=== PATIENT | male | born 1945 | race Hispanic/Latino ===

== ENCOUNTER 2022-09-08 10:12 | Observation (INO) | payer MEDICAID, SELFPAY ==
[2022-09-08 10:51] LABS: #Lymphocytes 0.7 thou/uL (1.20-3.40); #Monocytes 1.1 thou/uL (0.11-0.59); #Neutrophils 9.4 thou/uL (1.40-6.50); %Basophils 0.2 % (0.0-1.0); %Eosinophils 0.1 % (0.0-10.0); %Lymphocytes 6.1 % (21.0-51.0); %Monocytes 9.6 % (0.0-10.0); %Neutrophils 83.9 % (42.0-75.0); Hemoglobin 12.9 g/dL (14.0-18.0); Mean Corpuscular HGB CONC 34.2 g/dL (32.0-36.0); Mean Corpuscular Hemoglobin 34.6 pg (27.0-31.0); Mean Platelet Volume 9.4 fL (7.4-10.4); Platelet Count 135 10x3/uL (130-400); RBC Distribution Width 11.4 % (11.5-14.5); Red Blood Cell (RBC) Count 3.72 mill/uL (4.70-6.10); White Blood Cell (WBC) Count 11.2 10x3/uL (4.8-10.8)
[2022-09-08 11:07] LABS: ALT (SGPT) 16 U/L (8-55); AST (SGOT) 19 U/L (5-34); Albumin 3.8 g/dL (3.4-4.8); Alkaline Phosphatase 103 U/L (40-110); Anion Gap 13 mmol/L (10-20); BUN (Urea Nitrogen) 15 mg/dL (8.4-25.7); Bilirubin, Total 0.9 mg/dL (0.2-1.2); Calc. Creatinine Clearance 0 mL/min (70-130); Calcium 9.1 mg/dL (7.8-10.44); Carbon Dioxide 21 mmol/L (23-31); Chloride 102 mmol/L (98-107); Estimated GFR 74; Glucose 163 mg/dL (83-110); Lipase 8 U/L (8-78); Potassium 4.1 mmol/L (3.5-5.1); Protein, Total 6.8 g/dL (5.8-8.1); Sodium 132 mmol/L (136-145)
[2022-09-08 11:28] LABS: CKMB 0.9 ng/mL (0-6.6)
[2022-09-08] MEDS ORDERED: Acetaminophen 500 MG TAB ONE (11:45)
[2022-09-08] MEDS ORDERED: Ketorolac Tromethamine 30 MG/ML VIAL ONE (11:46)
[2022-09-08] MEDS ORDERED: Ondansetron PF 4 MG/2 ML Vial ONE (11:46)
[2022-09-08] MEDS ORDERED: Dextrose 50% Abboject 50 ML SYRINGE SLOW IVP PRN (12:37)
[2022-09-08] MEDS ORDERED: Dextrose 5% in Water 1,000 ML IV PRN (12:37)
[2022-09-08] MEDS ORDERED: Ondansetron PF 4 MG/2 ML Vial IVP PRN (12:37)
[2022-09-08] MEDS ORDERED: Ondansetron ODT 4 MG TAB PO PRN (12:37)
[2022-09-08] MEDS ORDERED: HumaLOG 300 UNITS/3 ML VIAL SC PRN ×2 (12:37)
[2022-09-08] MEDS ORDERED: Nitroglycerin 0.4 MG TAB (25 Tab Bottle) SL PRN (12:37)
[2022-09-08] MEDS ORDERED: hydrALAZINE 20 MG/ML VIAL SLOW IVP PRN (12:42)
[2022-09-08] MEDS ORDERED: hydrALAZINE 20 MG/ML VIAL SLOW IVP SCH ×2 (13:30→16:30)
[2022-09-08] MEDS ORDERED: hydrALAZINE 20 MG/ML VIAL ONE ×2 (13:52→16:37)
[2022-09-08 14:08] LABS: Hemoglobin A1c 6.7 % (4.0-6.0)
[2022-09-08] MEDS ORDERED: Sodium Chloride 0.9% 1,000 ML IV SCH (14:15)
[2022-09-08 14:53] LABS: Bacteria/HPF 4+ HPF (None Seen); Bilirubin Negative (Negative); Blood, Urine 1+ (Negative); Clarity Clear (Clear); Glucose, Urine (Dipstick) Normal (Negative); Ketone, Urine Negative (Negative); Leukocyte 75 Leu/uL (Negative); Nitrite Negative (Negative); Protein, Urine (Dipstick) 100 mg/dL (Neg-Trace); RBC/HPF 0-3 HPF (0-3); Specific Gravity, Urine 1.008 (1.002-1.036); Squamous Epithelial None Seen HPF (0-3); Urobilinogen Normal mg/dL (Less than 2); pH, Urine 6.5 (5.0-9.0)
[2022-09-08] MEDS ORDERED: Hydrochlorothiazide 25 MG TAB PO SCH (16:30)
[2022-09-08] MEDS ORDERED: Lisinopril 10 MG TAB ONE (16:36)
[2022-09-08] MEDS ORDERED: Lisinopril 20 MG TAB PO SCH (16:45)
[2022-09-08] MEDS ORDERED: Labetalol HCl 100 MG/20 ML VIAL SLOW IVP PRN (17:05)
[2022-09-08 17:10] LABS: Troponin I 0.025 ng/mL (< 0.028)
[2022-09-08] MEDS ORDERED: cefTRIAXone\\ROCEPHIN 1 GM VIAL ONE (17:25)
[2022-09-08] MEDS: cefTRIAXone\\ROCEPHIN 1 GM in Sodium Chloride 0.9% 100 ML IVPB SCH (17:29)
[2022-09-08] MEDS: Acetaminophen 325 MG TAB PO PRN (19:59)
[2022-09-08] MEDS ORDERED: Cepastat Lozenges 1 LOZ PO PRN (20:34)
[2022-09-08] MEDS ORDERED: Chloraseptic Spray 180 ml Bottle PO PRN (20:46)
[2022-09-08 22:03] VITALS: BMI 20.2
[2022-09-08] MEDS: Lisinopril 20 MG TAB PO SCH (23:35)
[2022-09-09 00:20] LABS: Bacteria/HPF None Seen HPF (None Seen); Bilirubin Negative (Negative); Blood, Urine 2+ (Negative); CAUTI Indications for Culture Pelvic or flank pain; Clarity Clear (Clear); Glucose, Urine (Dipstick) Normal (Negative); Ketone, Urine Negative (Negative); Leukocyte 25 Leu/uL (Negative); Nitrite Negative (Negative); Protein, Urine (Dipstick) 200 mg/dL (Neg-Trace); RBC/HPF 0-3 HPF (0-3); Specific Gravity, Urine 1.014 (1.002-1.036); Squamous Epithelial 0-3 HPF (0-3); Urobilinogen Normal mg/dL (Less than 2)
[2022-09-09 00:37] LABS: Urine Culture Reflex Yes Yes
[2022-09-09 05:38] LABS: #Lymphocytes 0.8 thou/uL (1.20-3.40); #Monocytes 1.2 thou/uL (0.11-0.59); #Neutrophils 7.9 thou/uL (1.40-6.50); %Basophils 0.3 % (0.0-1.0); %Eosinophils 0.2 % (0.0-10.0); %Lymphocytes 7.9 % (21.0-51.0); %Monocytes 12.3 % (0.0-10.0); %Neutrophils 79.3 % (42.0-75.0); Hemoglobin 12.2 g/dL (14.0-18.0); Mean Corpuscular HGB CONC 35.7 g/dL (32.0-36.0); Mean Corpuscular Hemoglobin 35.7 pg (27.0-31.0); Mean Platelet Volume 9.5 fL (7.4-10.4); Platelet Count 123 10x3/uL (130-400); RBC Distribution Width 11.5 % (11.5-14.5); Red Blood Cell (RBC) Count 3.42 mill/uL (4.70-6.10)
[2022-09-09 05:40] LABS: Anion Gap 12 mmol/L (10-20); BUN (Urea Nitrogen) 13 mg/dL (8.4-25.7); Calc. Creatinine Clearance 50 mL/min (70-130); Calcium 8.6 mg/dL (7.8-10.44); Carbon Dioxide 23 mmol/L (23-31); Cardiac Risk 2.8 (Less than 4.5); Chloride 103 mmol/L (98-107); Cholesterol 127 mg/dl (< 200 Desired); Estimated GFR 80; Glucose 146 mg/dL (83-110); HDL Cholesterol 45 mg/dL (>60 Neg Risk); Iron 22 ug/dL (65-175); Iron Binding Capacity, Total 233 mcg/dL (261-462); LDL Cholesterol, Calculated 70 mg/dL; Potassium 3.5 mmol/L (3.5-5.1); Sodium 134 mmol/L (136-145); Triglycerides 62 mg/dL (Less than 150)
[2022-09-09 06:01] LABS: Ferritin 154.1 ng/mL (22-322); Thyroid Stimulating Hormone 1.2502 uIU/mL (0.35-4.94)
[2022-09-09] MEDS: Lisinopril 20 MG TAB PO SCH (08:24)
[2022-09-09] MEDS: Acetaminophen 325 MG TAB PO PRN ×2 (08:25→16:57)
[2022-09-09] MEDS ORDERED: Rosuvastatin 20 MG TAB PO SCH (09:00)
[2022-09-09] MEDS ORDERED: Non-Formulary Item 1 EACH (Rosuvastatin Calcium [Crestor] 40 MG Tablet) PO SCH (09:00)
[2022-09-09] MEDS ORDERED: Aspirin Chewable 81 MG TAB PO SCH (09:00)
[2022-09-09] MEDS ORDERED: Hydrochlorothiazide 25 MG TAB PO SCH (09:00)
[2022-09-09 12:49] VITALS: TEMP 97.8
[2022-09-09] MEDS ORDERED: Insulin NPH Human Isophane 100 UNIT/ML (10 ML VIAL) SC SCH ×2 (14:15→21:00)
[2022-09-09] MEDS ORDERED: HumaLOG 300 UNITS/3 ML VIAL SC PRN (14:45)
[2022-09-09 16:43] VITALS: BP 159/68
[2022-09-09] MEDS: cefTRIAXone\\ROCEPHIN 1 GM in Sodium Chloride 0.9% 100 ML IVPB SCH (16:57)
[2022-09-09] MEDS ORDERED: metFORMIN 500 MG TAB PO SCH (17:00)
[2022-09-10] MEDS ORDERED: Aspirin 81 mg Enteric Coated Tablet PO SCH (09:00)
[2022-09-10] MEDS ORDERED: Insulin NPH Human Isophane 100 UNIT/ML (10 ML VIAL) SC SCH ×2 (09:00)
== END 2022-09-09 18:57 | disposition home or self-care (01) ==
LOC: ERS 10:12 → ERHOLD 12:12 → 2SW 12:12
PROVIDERS: ADMIT Family Medicine; ATTEND Family Medicine
DX: N39.0 Urinary tract infection, site not specified (principal); R53.1 Weakness; D64.9 Anemia, unspecified; I10 Essential (primary) hypertension; E11.9 Type 2 diabetes mellitus without complications; I25.10 Atherosclerotic heart disease of native coronary artery without angina pectoris; R19.7 Diarrhea, unspecified; Z79.4 Long term (current) use of insulin; Z95.1 Presence of aortocoronary bypass graft; Z20.822 Contact with and (suspected) exposure to COVID-19
CPT/HCPCS: 36415; 36416; 71045; 80048; 80053; 80061; 81003; 81015; 82553; 82607; 82728; 83036; 83540; 83550; 83690; 84443; 84484; 85025; 87040; 87077; 87086; 87804; 93005; 94760; 96374; 96375; 96376; G0378; J0360; J0696; J1815; J1885; J2405; J3490; J7050; U0003; U0005